=== PATIENT | male | born 2000 | race Caucasian/White ===

== ENCOUNTER 2020-05-08 08:22 | Emergency (ER) | payer OTHER ==
[2020-05-08] MEDS ORDERED: Acetaminophen 325 MG Tab PO ONE (08:26)
[2020-05-08] MEDS ORDERED: Ibuprofen 600 MG Tab PO ONE (08:26)
--- NOTE | 2020-05-08 08:58 | EDM.PDOC ---
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 This was yesterday. Since then he is continued to have pain and it is not going away. It is worse with range of motion although he remains having full range of motion. And states that the pain is tolerable but moderate to severe. This is never happened in the past. No previous known shoulder injuries. No other associated signs or symptoms. No other modifying, aggravating or alleviating factors. Review of systems: A 10-point review of systems, other than pertinent positives and negatives as stated per HPI, is otherwise negative. Past medical history: As per history of present illness and as reviewed below otherwise noncontributory. Surgical history: As per history of present illness and as reviewed below otherwise noncontributory. Social history: No reported history of drug or alcohol abuse. Family history: As per history of present illness and as reviewed below otherwise noncontributory. Physical exam: VITAL SIGNS: Reviewed. GENERAL: Appears to be in acute pain but is otherwise stable and nontoxic appearing. HEAD: No signs of head trauma. EYES: Pupils are equal. Extraocular motions intact. EARS: Hearing grossly intact. MOUTH: Oropharynx is normal. NECK: No adenopathy, no JVD. CHEST: Chest with clear breath sounds bilaterally. No wheezes, rales, or rhonchi. CARDIAC: Regular rate and rhythm. Normal S1 and S2, without murmurs, gallops, or rubs. VASCULAR: Peripheral pulses normal and equal in all extremities. ABDOMEN: Soft, without detectable tenderness. No sign of distention. No rebound or guarding, and no masses palpated. MUSCULOSKELETAL: Good range of motion of all major joints. Extremities without clubbing, cyanosis or edema. There is tenderness and mild deformity over the left AC joint. Distal neurovascular function is intact. NEUROLOGIC EXAM: Alert and oriented x 3. No focal sensory or motor deficits. Speech normal. Follows commands. PSYCHIATRIC: Mood normal. SKIN: No rash or lesions. Initial Differential Diagnosis & Plan: Extremity trauma: Differential diagnosis includes fracture, dislocation, strain, contusion, tendon or ligamentous injury, compartment syndrome, neurovascular injury, muscle rupture. I suspect the patient has an acute AC joint tear with a grade 2 or 3 appearance. I will obtain plain radiographs to confirm the suspicion. He may also have an underlying labrum or rotator cuff injury however these were not evident on exam at this point. There is point tenderness over the AC joint. Definitive disposition and diagnosis as appropriate pending reevaluation and review of above. Left Shoulder Pain Score (Numeric/FACES): 8 - Related Data Allergies Allergy/AdvReac Type Severity Reaction Status Date / Time No Known Allergies Allergy Verified 05/08/20 08:32 Home Meds: Home Meds Acetaminophen [Tylenol Extra Strength] 1,000 mg PO Q6HR PRN #60 tablet 05/08/20 [Rx] Ibuprofen [Motrin] 600 mg PO Q6H PRN #30 tab 05/08/20 [Rx] methocarbamoL [Robaxin-750] 750 mg PO TID #21 tablet 05/08/20 [Rx] Past Medical History Gastrointestinal History: Reports: None - Infectious Disease History Infectious Disease History: Reports: Chicken Pox - Past Surgical History GI Surgical History: Reports: Appendectomy Social & Family History - Family History Family Medical History: Noncontributory - Tobacco Use Smoking Status *Q: Never Smoker Second Hand Smoke Exposure: No - Caffeine Use Caffeine Use: Reports: Energy Drinks, Other Other Caffeine Use: Suppliments - Recreational Drug Use Recreational Drug Use: Yes Drug Use in Last 12 Months: Yes Recreational Drug Type: Reports: Marijuana/Hashish Recreational Drug Use Frequency: Daily Review of Systems - Review of Systems Review Of Systems: See Below (noted) ED EXAM, GENERAL - Physical Exam Exam: See Below (noted) ED TRAUMA EXTREMITY PROCEDURES - Additional/Other Procedure(s) Other (Free Text) Procedure(s): Sling of left upper extremity COMPLICATIONS: None APPLIED BY: Nurse/Tech NEUROVASCULAR EXAM: intact both before and after procedure Course - Vital Signs Last Recorded V/S: Last Vital Signs Temp 97.5 F 05/08/20 08:33 Pulse 64 05/08/20 08:33 Resp 14 05/08/20 08:33 BP 120/43 L 05/08/20 08:33 Pulse Ox 99 05/08/20 08:33 - Orders/Labs/Meds Orders: Active Orders 24 hr Category Date Time Status Shoulder Comp Lt [CR] Stat Exams 05/08/20 08:24 Ordered Meds: Medications Discontinued Medications Generic Name Dose Route Start Last Admin Trade Name Joaquina PRN Reason Stop Dose Admin Acetaminophen 975 mg 05/08/20 08:26 05/08/20 08:43 Tylenol PO 05/08/20 08:27 975 mg NOW ONE Administration Ibuprofen 600 mg 05/08/20 08:26 05/08/20 08:43 Motrin PO 05/08/20 08:27 600 mg ONETIME ONE Administration Departure - Departure Time of Disposition: :18 Disposition: Home, Self-Care 01 Clinical Impression: AC separation, type 2, Rotator cuff (capsule) sprain, Sprain of shoulder - Discharge Information *PRESCRIPTION DRUG MONITORING PROGRAM REVIEWED*: No *COPY OF PRESCRIPTION DRUG MONITORING REPORT IN PATIENT SULLY: No Instructions: Acromioclavicular Separation Rehab-[facility], Acromioclavicular Separation, Shoulder Sprain Referrals: PCP,None [Primary Care Provider] - Forms: ED Department Discharge Additional Instructions: The following information is given to patients seen in the emergency department who are being discharged to home. This information is to outline your options for follow-up care. We provide all patients seen in our emergency department with a follow-up referral. The need for follow-up, as well as the timing and circumstances, are variable depending upon the specifics of your emergency department visit. If you don't have a primary care physician on staff, we will provide you with a referral. We always advise you to contact your personal physician following an emergency department visit to inform them of the circumstance of the visit and for follow-up with them and/or the need for any referrals to a consulting specialist. The emergency department will also refer you to a specialist when appropriate. This referral assures that you have the opportunity for follow-up care with a specialist. All of these measure are taken in an effort to provide you with optimal care, which includes your follow-up. Thank you for coming to the [facility] urgency department for your care today. It was Dr. Badillo's pleasure to take care of you. [facility] [address], [address] [place] [address] You have an AC separation. This is the acromion clavicle joint. This can be quite painful but you should be able to get back to working out in 4 to 6 weeks. Please follow-up with orthopedics for more testing as you may have an underlying tear in the shoulder joint. This is not evident on x-rays and would require an MRI. Please return emergency department for any uncontrolled pain, or any other concerns. Under all circumstances we always encourage you to contact your private physician who remains a resource for coordinating your care. When calling for follow-up care, please make the office aware that this follow-up is from your recent emergency room visit. If for any reason you are refused follow-up, please contact the [facility] Emergency Department at and asked to speak to the emergency department charge nurse. Sepsis Event Note (ED) - Evaluation Sepsis Screening Result: No Definite Risk - Focused Exam Vital Signs: Vital Signs Temp Pulse Resp BP Pulse Ox 05/08/20 08:33 97.5 F 64 14 120/43 L 99 - My Orders Last 24 Hours: My Active Orders 05/08/20 08:24 Shoulder Comp Lt [CR] Stat - Assessment/Plan Last 24 Hours: My Active Orders 05/08/20 08:24 Shoulder Comp Lt [CR] Stat
--- NOTE | 2020-05-08 09:28 | CR ---
Left shoulder: 3 views of the left shoulder were obtained. Comparison: No previous left shoulder study. Glenohumeral joint and acromioclavicular joint appears unremarkable. No acute fracture or other bony abnormality is appreciated. No abnormal soft tissue calcifications are seen. Impression: 1. No abnormality is appreciated on 3 view left shoulder exam. Diagnostic code #1 This report was dictated in MDT
== END 2020-05-08 09:27 | disposition home or self-care (01) ==
LOC: MW.ED 08:22
DX: S43.102A Unspecified dislocation of left acromioclavicular joint, initial encounter (principal); S43.422A Sprain of left rotator cuff capsule, initial encounter; X58.XXXA Exposure to other specified factors, initial encounter
CPT/HCPCS: 73030; 99283; A9270